=== PATIENT | female | born 1995 | race American Indian/Alaskan Native ===

== ENCOUNTER 2017-02-20 19:22 | Emergency (ER) | payer BC ==
[2017-02-20] MEDS ORDERED: NORCO 10/325 PO ONE (19:51)
[2017-02-20] MEDS ORDERED: MOTRIN PO ONE (19:51)
--- NOTE | 2017-02-20 19:51 | Emergency Department Report ---
ED Lower Extremity HPI - General Chief Complaint: Extremity Injury, Lower Stated Complaint: Injured ANKLE PLAYING BASKETBALL Time Seen by Provider: 02/20/17 19:36 Source: patient, family Mode of arrival: Ambulatory Limitations: No Limitations - History of Present Illness Initial Comments: Seen here report that she was playing basketball yesterday and she jumped and landed on her right ankle and fell and another individual stepped on her ankle. She is reporting swelling and pain pain is not noted 10 and throbbing and hurts to her right outer ankle. Denies any head injury or loss of consciousness. Denies any neck or back pain. Denies any numbness certainly to extremities. Denies any pain in her feet. Patient said she has to limp around. She reports placing ice to site but did not take any medication. MD Complaint: ankle injury -: Last night Injury: Ankle: Right (right ankle pain and swelling) - Related Data Previous Rx's Medication Instructions Recorded Last Taken Type Ibuprofen [Motrin] 600 mg PO Q8H PRN 4 Days #12 tablet 02/20/17 Unknown Rx Allergies Allergy/AdvReac Type Severity Reaction Status Date / Time No Known Allergies Allergy Unverified 02/20/17 19:24 ED Review of Systems ROS: Stated complaint: STARINED ANKLE PLAYING BASKETBALL Other details as noted in HPI Comment: All other systems reviewed and negative Constitutional: no symptoms reported Eyes: denies: eye pain Respiratory: no symptoms reported Cardiovascular: denies: chest pain, palpitations, dyspnea on exertion, edema, syncope, other Gastrointestinal: denies: abdominal pain, nausea, vomiting Musculoskeletal: joint swelling, arthralgia. denies: back pain, myalgia Skin: denies: rash Neurological: abnormal gait (normal gait to lower extremity due to right ankle swelling pain due to injury). denies: headache, weakness, numbness, paresthesias, confusion ED Past Medical Hx - Past Medical History Previous Medical History?: No - Surgical History Past Surgical History?: No - Family History Family history: no significant - Social History Smoking Status: Never Smoker Substance Use Type: None - Medications Home Medications: Home Medications Medication Instructions Recorded Confirmed Last Taken Type Ibuprofen [Motrin] 600 mg PO Q8H PRN 4 Days #12 tablet 02/20/17 Unknown Rx ED Physical Exam - General Limitations: No Limitations General appearance: alert, in no apparent distress - Head Head exam: Present: atraumatic, normocephalic, normal inspection, other (Normal head exam) - Eye Eye exam: Present: normal appearance, PERRL, EOMI. Absent: periorbital swelling , periorbital tenderness Pupils: Present: normal accommodation - ENT ENT exam: Present: normal exam, normal orophraynx, mucous membranes moist - Neck Neck exam: Present: normal inspection, full ROM, other (no C-spine tenderness.) . Absent: tenderness, meningismus, lymphadenopathy - Respiratory Respiratory exam: Present: normal lung sounds bilaterally. Absent: respiratory distress, wheezes, chest wall tenderness, accessory muscle use - Cardiovascular Cardiovascular Exam: Present: regular rate, normal rhythm, normal heart sounds. Absent: systolic murmur, diastolic murmur - GI/Abdominal GI/Abdominal exam: Present: soft, normal bowel sounds. Absent: distended, tenderness, guarding, rebound, rigid - Extremities Exam Extremities exam: Present: full ROM (minute range of motion to right ankle), tenderness (right outer ankle), joint swelling (right outer ankle), other (no neurovascular compromise to extremities. +2 pulses in all extremities. No clubbing or cyanosis to extremities. Patient with swelling to right outer ankle. Decreased strength to right ankle due to pain and swelling from injury) . Absent: normal inspection, pedal edema, calf tenderness - Expanded Lower Extremity Exam Right Hip exam: Present: normal inspection, full ROM, pelvic stability. Absent: tenderness, swelling, abrasion, laceration, ecchymosis, deformity, crepidus, dislocation, erythema, external rotation, internal rotation, shortening Upper Leg exam: Present: normal inspection, full ROM. Absent: tenderness, swelling, abrasion, laceration, ecchymosis, deformity, crepidus, dislocation, erythema Knee exam: Present: normal inspection, full ROM, full knee extension. Absent: tenderness, swelling, abrasion, laceration, ecchymosis, deformity, crepidus, dislocation, erythema, effusion, pain w/ pronation/supination, posterior draw sign, pain/laxity with valgus, pain/laxity with varus Lower Leg exam: Present: normal inspection, full ROM. Absent: tenderness, swelling, abrasion, laceration, ecchymosis, deformity, crepidus, dislocation, erythema, palpable cord Ankle exam: Present: tenderness, swelling (outer ankle). Absent: normal inspection, full ROM ( limited range of motion to the right ankle due to pain and swelling.), abrasion, laceration, ecchymosis, deformity, crepidus, dislocation, erythema Foot/Toe exam: Present: normal inspection, full ROM. Absent: tenderness, swelling, abrasion, laceration, ecchymosis, deformity, crepidus, dislocation, erythema, amputation, puncture wound, foreign body, calcaneal tenderness, tenderness at base of 5th metatarsal, nail avulsion, subungual hematoma Neuro vascular tendon exam: Present: no vascular compromise, motor deficit ( patient with decreased motor movement to right ankle due to injury and pain and swelling to area. 3/5 strength to area), significant pain with passive ROM of distal joint. Absent: pulse deficit, sensory deficit, tendon deficit, extremity cold to touch, pallor, abnormal 2-point discrimination, decreased fine /light touch, foot drop, peroneal nerve deficit Gait: Positive: unable to bear weight - Back Exam Back exam: Present: normal inspection, full ROM, rash noted. Absent: tenderness , CVA tenderness (R), CVA tenderness (L), muscle spasm, paraspinal tenderness, vertebral tenderness - Neurological Exam Neurological exam: Present: alert, oriented X3, abnormal gait (patient with decreased movement to right ankle due to injury and pain and swelling.), motor sensory deficit (3/5 strength to right lower extremity due to ankle injury.), reflexes normal - Psychiatric Psychiatric exam: Present: normal affect, normal mood - Skin Skin exam: Present: warm, dry, intact, normal color. Absent: rash ED Course Vital Signs 02/20/17 02/20/17 19:24 20:22 Temperature 98.7 F Pulse Rate 87 Respiratory 16 18 Rate Blood Pressure 120/84 O2 Sat by Pulse 98 Oximetry - Reevaluation(s) Reevaluation #1: 02/20/17 20:38 She received Percocet 10/325 one tablet by mouth in emergency room for right ankle pain and Motrin 800 mg by mouth. Voice relief of pain. Still awaiting x- rays - Orthopedic Splinting/Casting Injury #1 Side: right Lower Extremity Injury Location: ankle Lower Extremity Immobilizer: stirrup splint Other Orthopedic Equipment: crutches Additional Comments: Patient with good color, sensation, movement and temperature to the toes of right foot. ED Lower Extremity MDM - Radiology Data Radiology results: report reviewed interpreted by me: X-ray of ankle 3 view reveal negative ankle series. No erosive or degenerative changes are identified. No evidence of joint effusion. No mention of soft tissue swelling. - Medical Decision Making ED Course: Patient reports that she fell yesterday and injured her ankle. Physical findings for limited range of motion to right ankle with swelling to right ankle and tenderness to palpate. Patient unable to weight-bear due to pain. X-ray report revealed negative findings for bony abnormalities and did not mention any soft tissue injury. Patient with obvious swelling to the left ankle. She was given Fallon 10/325 mg 1 tablet and Motrin 800 mg one tablet by mouth emergency room. She said that helped her pain. Patient with ankle stirrup and crutches and referred to orthopedic. Rice protocol explained. I explained diagnosis and treatment plan the patient. I told its very important that she follow rice protocol and if she continues to have swelling and with pain to area then she will need to follow up with orthopedic doctor who is Dr. Medina. She given discharge instructions and prescription for Motrin and discharged from emergency room with her friend. Critical care attestation.: If time is entered above; I have spent that time in minutes in the direct care of this critically ill patient, excluding procedure time. ED Disposition Clinical Impression: Arthralgia of right ankle, Fall from ground level Right ankle sprain Qualifiers: Encounter type: initial encounter Involved ligament of ankle: unspecified ligament Qualified Code(s): S93.401A - Sprain of unspecified ligament of right ankle, initial encounter Right ankle injury Qualifiers: Encounter type: initial encounter Qualified Code(s): S99.911A - Unspecified injury of right ankle, initial encounter Disposition: DC- TO HOME OR SELFCARE Is pt being admited?: No Does the pt Need Aspirin: No Condition: Stable Instructions: Arthralgia (ED), Ankle Stirrup Splint (ED), Ankle Exercises (GEN) , Crutch Instructions (ED), RICE Therapy (ED) Additional Instructions: Please do not weight-bear to Rt lower extremity for the next 5 days. Please follow up with orthopedic doctor as instructed in 2-3 days Take Motrin as prescribed. This medication will help to reduce inflammation Follow rice protocol per discharge instruction paperwork No sports until cleared by Orthopedist If he experienced, increased swelling, redness, numbness and tingling , pain radiating up your ankle to legs, fever or chills and inability to move/loss of sensation in left foot please return to the emergency room Prescriptions: Ibuprofen [Motrin] 600 mg PO Q8H PRN 4 Days #12 tablet PRN Reason: Pain Referrals: RICO MEDINA MD [Staff Physician] - 2-3 Days Forms: Work/School Release Form(ED)
--- NOTE | 2017-02-20 21:12 | XRay Report ---
FINAL REPORT EXAM: XR ANKLE 3+V RT HISTORY: pain TECHNIQUE: Three views right ankle PRIORS: None. FINDINGS: No fracture is identified. No dislocation seen. Ankle mortise is intact no evidence of joint space widening. No erosive or degenerative changes are identified. No evidence of joint effusion. IMPRESSION: Negative ankle series
[2017-02-21 02:43] VITALS: BP 116/81
== END 2017-02-20 22:27 | disposition home or self-care (01) ==
LOC: ED 19:22
DX: S93.401A Sprain of unspecified ligament of right ankle, initial encounter (principal); W17.89XA Other fall from one level to another, initial encounter; Y93.67 Activity, basketball; Y92.89 Other specified places as the place of occurrence of the external cause; Y99.8 Other external cause status

== ENCOUNTER 2020-03-02 19:10 | Emergency (ER) | payer BC ==
[2020-03-02 19:37] VITALS: BP 150/77
[2020-03-02 19:46] LABS: Basophils % (Auto) 0.5 % (0.0-1.8); Eosinophils # (Auto) 0.1 K/mm3 (0.0-0.4); Eosinophils % (Auto) 1.9 % (0.0-4.3); Hematocrit 39.8 % (30.3-42.9); Hemoglobin 13.4 gm/dl (10.1-14.3); Lymphocytes # (Auto) 2.4 K/mm3 (1.2-5.4); Lymphocytes % (Auto) 32.3 % (13.4-35.0); Mean Corpuscular HGB Conc 34 % (30-34); Mean Corpuscular Volume 90 fl (79-97); Monocytes # (Auto) 0.4 K/mm3 (0.0-0.8); Monocytes % (Auto) 5.2 % (0.0-7.3); Platelet Count 239 K/mm3 (140-440); Red Blood Count 4.45 M/mm3 (3.65-5.03); Red Cell Distribution Width 13.3 % (13.2-15.2)
[2020-03-02 20:37] LABS: Alanine Aminotransferase 19 units/L (7-56); Albumin 4.4 g/dL (3.9-5); BUN/Creatinine Ratio 13; Blood Urea Nitrogen 12 mg/dL (7-17); Calcium 10.3 mg/dL (8.4-10.2); Hemolysis Index 12
[2020-03-02 20:58] LABS: Bilirubin,Urine NEG (Negative); Blood,Urine LG (Negative); Color,Urine Yellow (Yellow); Mucus,Urine 1+ /HPF; RBC,Urine > 182.0 /HPF (0.0-6.0); Urobilinogen,Urine < 2.0 mg/dL (<2.0)
--- NOTE | 2020-03-02 21:56 | Ultrasound Report ---
ULTRASOUND OBSTETRIC REASON FOR EXAM: vaginal bleeding TECHNIQUE: Transabdominal and transvaginal ultrasound was performed to evaluate a first trimester pre gnancy. COMPARISON: None available. FINDINGS: FINDINGS: No IUP is visualized. MATERNAL FINDINGS: The uterus measures 7.2 x 3.3 x 3.4 cm. Endometrial thickness measures 1.2 cm. . The right ovary measures 4.4 x 2.1 x 1.8 cm and demonstrates a normal sonographic appearance. Multipl e ovarian follicles. The left ovary measures 4.3 x 2.5 x 2.9 cm and demonstrates a normal sonographic appearance. Multiple ovarian follicles. Cul-de-sac: There is no significant free fluid. IMPRESSION: of unknown location. Findings could reflect an early intrauterine , occult ectopic , or recent spontaneous . In a hemodynamically stable patient, recommend follow-up with pelvic ultrasound in 7-10 days. Signer Name: Johan Penaloza MD Signed: 03/02/2020 9:52 PM Workstation Name: [id number]
--- NOTE | 2020-03-02 22:41 | Emergency Department Report ---
ED General Adult HPI - General Chief complaint: Vaginal Bleeding Stated complaint: VAGINAL BLEEDING Time Seen by Provider: 03/02/20 21:07 Source: patient Mode of arrival: Ambulatory Limitations: No Limitations - History of Present Illness Initial comments: 25-year-old -[place] female patient presents with complaints of heavy vaginal bleeding x1 month. She states she is unsure if she is . She denies history of irregular cycles, fatigue, shortness of breath, chest pain, vaginal discharge/dyspareunia, dysuria/hematuria/urinary frequency, or abdominal pain. She states she became concerned today when the blood began to soak through her clothes while at work. No prior history of uterine fibroids per patient. She states that she has used 3 pads today. - Related Data Previous Rx's Medication Instructions Recorded Last Taken Type Ibuprofen [Motrin] 600 mg PO Q8H PRN 4 Days #12 tablet 02/20/17 Unknown Rx Sulfamethoxazole/Trimethoprim 1 each PO BID 3 Days #6 tablet 03/02/20 Unknown Rx [Bactrim DS TAB] medroxyPROGESTERone ACETATE 10 mg PO QDAY 7 Days #7 tablet 03/02/20 Unknown Rx [Provera] Allergies Allergy/AdvReac Type Severity Reaction Status Date / Time No Known Allergies Allergy Unverified 02/20/17 19:24 ED Review of Systems ROS: Stated complaint: VAGINAL BLEEDING Other details as noted in HPI Constitutional: denies: chills, diaphoresis, fever, malaise, weakness ENT: denies: throat pain, epistaxis Respiratory: denies: cough, shortness of breath Cardiovascular: denies: chest pain Endocrine: denies: excessive sweating Gastrointestinal: denies: abdominal pain, nausea, vomiting Genitourinary: abnormal menses. denies: urgency, dysuria, frequency, hematuria, discharge, dyspareunia Skin: denies: change in color Neurological: denies: headache, numbness Hematological/Lymphatic: denies: easy bleeding, easy bruising ED Past Medical Hx - Past Medical History Previous Medical History?: No - Surgical History Past Surgical History?: No - Social History Smoking Status: Never Smoker - Medications Home Medications: Home Medications Medication Instructions Recorded Confirmed Last Taken Type Ibuprofen [Motrin] 600 mg PO Q8H PRN 4 Days #12 tablet 02/20/17 Unknown Rx Sulfamethoxazole/Trimethoprim 1 each PO BID 3 Days #6 tablet 03/02/20 Unknown Rx [Bactrim DS TAB] medroxyPROGESTERone ACETATE 10 mg PO QDAY 7 Days #7 tablet 03/02/20 Unknown Rx [Provera] ED Physical Exam - General Limitations: No Limitations General appearance: alert, in no apparent distress - Head Head exam: Present: atraumatic, normocephalic - Eye Eye exam: Present: normal appearance. Absent: scleral icterus - Neck Neck exam: Present: normal inspection - Respiratory Respiratory exam: Present: normal lung sounds bilaterally. Absent: respiratory distress - Cardiovascular Cardiovascular Exam: Present: regular rate, normal rhythm. Absent: systolic mur mur, diastolic murmur, rubs, gallop - GI/Abdominal GI/Abdominal exam: Present: soft, normal bowel sounds. Absent: distended, tenderness, guarding, rebound, rigid - Extremities Exam Extremities exam: Present: full ROM - Neurological Exam Neurological exam: Present: alert, oriented X3 - Psychiatric Psychiatric exam: Present: normal affect, normal mood - Skin Skin exam: Present: warm, dry, intact, normal color. Absent: rash, cyanosis, diaphoretic, pallor, ecchymosis ED Course Vital Signs 03/02/20 19:21 Temperature 99.2 F Pulse Rate 85 Respiratory 18 Rate Blood Pressure 150/77 O2 Sat by Pulse 96 Oximetry ED Medical Decision Making - Lab Data Result diagrams: 03/02/20 19:32 03/02/20 19:32 Lab Results 03/02/20 03/02/20 03/02/20 Range/Units 19:32 19:32 19:32 WBC 7.5 (4.5-11.0) K/mm3 RBC 4.45 (3.65-5.03) M/mm3 Hgb 13.4 (10.1-14.3) gm/dl Hct 39.8 (30.3-42.9) % MCV 90 (79-97) fl MCH 30 (28-32) pg MCHC 34 (30-34) % RDW 13.3 (13.2-15.2) % Plt Count 239 (140-440) K/mm3 Lymph % (Auto) 32.3 (13.4-35.0) % [place] % (Auto) 5.2 (0.0-7.3) % Eos % (Auto) 1.9 (0.0-4.3) % Baso % (Auto) 0.5 (0.0-1.8) % Lymph # (Auto) 2.4 (1.2-5.4) K/mm3 [place] # (Auto) 0.4 (0.0-0.8) K/mm3 Eos # (Auto) 0.1 (0.0-0.4) K/mm3 Baso # (Auto) 0.0 (0.0-0.1) K/mm3 Seg Neutrophils % 60.1 (40.0-70.0) % Seg Neutrophils # 4.5 (1.8-7.7) K/mm3 Sodium (137-145) mmol/L Potassium (3.6-5.0) mmol/L Chloride (98-107) mmol/L Carbon Dioxide (22-30) mmol/L Anion Gap mmol/L BUN (7-17) mg/dL Creatinine (0.6-1.2) mg/dL Estimated GFR ml/min BUN/Creatinine Ratio % Glucose (65-100) mg/dL Calcium (8.4-10.2) mg/dL Total Bilirubin (0.1-1.2) mg/dL AST (5-40) units/L ALT (7-56) units/L Alkaline Phosphatase (35-129) units/L Total Protein (6.3-8.2) g/dL Albumin (3.9-5) g/dL Albumin/Globulin Ratio % HCG, Quant < 2 (0-4) mIU/mL Urine Color (Yellow) Urine Turbidity (Clear) Urine pH (5.0-7.0) Ur Specific [place] (1.003-1.030) Urine Protein (Negative) mg/dL Urine Glucose (UA) (Negative) mg/dL Urine Ketones (Negative) mg/dL Urine Blood (Negative) Urine Nitrite (Negative) Urine Bilirubin (Negative) Urine Urobilinogen (<2.0) mg/dL Ur Leukocyte Esterase (Negative) Urine WBC (Auto) (0.0-6.0) /HPF Urine RBC (Auto) (0.0-6.0) /HPF U Epithel Cells (Auto) (0-13.0) /HPF Urine Mucus /HPF Blood Type O POSITIVE 03/02/20 03/02/20 Range/Units 19:32 20:30 WBC (4.5-11.0) K/mm3 RBC (3.65-5.03) M/mm3 Hgb (10.1-14.3) gm/dl Hct (30.3-42.9) % MCV (79-97) fl MCH (28-32) pg MCHC (30-34) % RDW (13.2-15.2) % Plt Count (140-440) K/mm3 Lymph % (Auto) (13.4-35.0) % [place] % (Auto) (0.0-7.3) % Eos % (Auto) (0.0-4.3) % Baso % (Auto) (0.0-1.8) % Lymph # (Auto) (1.2-5.4) K/mm3 [place] # (Auto) (0.0-0.8) K/mm3 Eos # (Auto) (0.0-0.4) K/mm3 Baso # (Auto) (0.0-0.1) K/mm3 Seg Neutrophils % (40.0-70.0) % Seg Neutrophils # (1.8-7.7) K/mm3 Sodium 141 (137-145) mmol/L Potassium 4.3 (3.6-5.0) mmol/L Chloride 103.4 (98-107) mmol/L Carbon Dioxide 28 (22-30) mmol/L Anion Gap 14 mmol/L BUN 12 (7-17) mg/dL Creatinine 0.9 (0.6-1.2) mg/dL Estimated GFR > 60 ml/min BUN/Creatinine Ratio 13 % Glucose 86 (65-100) mg/dL Calcium 10.3 H (8.4-10.2) mg/dL Total Bilirubin 0.20 (0.1-1.2) mg/dL AST 18 (5-40) units/L ALT 19 (7-56) units/L Alkaline Phosphatase 70 (35-129) units/L Total Protein 7.5 (6.3-8.2) g/dL Albumin 4.4 (3.9-5) g/dL Albumin/Globulin Ratio 1.4 % HCG, Quant (0-4) mIU/mL Urine Color Yellow (Yellow) Urine Turbidity Slightly-cloudy (Clear) Urine pH 6.0 (5.0-7.0) Ur Specific [place] 1.024 (1.003-1.030) Urine Protein 100 mg/dl (Negative) mg/dL Urine Glucose (UA) Neg (Negative) mg/dL Urine Ketones Neg (Negative) mg/dL Urine Blood Lg (Negative) Urine Nitrite Neg (Negative) Urine Bilirubin Neg (Negative) Urine Urobilinogen < 2.0 (<2.0) mg/dL Ur Leukocyte Esterase Neg (Negative) Urine WBC (Auto) 7.0 H (0.0-6.0) /HPF Urine RBC (Auto) > 182.0 (0.0-6.0) /HPF U Epithel Cells (Auto) 14.0 H (0-13.0) /HPF Urine Mucus 1+ /HPF Blood Type - Radiology Data Radiology results: report reviewed FINDINGS: No IUP is visualized. MATERNAL FINDINGS: The uterus measures 7.2 x 3.3 x 3.4 cm. Endometrial thickness measures 1.2 cm. . The right ovary measures 4.4 x 2.1 x 1.8 cm and demonstrates a normal sonographic appearance. Multiple ovarian follicles. The left ovary measures 4.3 x 2.5 x 2.9 cm and demonstrates a normal sonographic appearance. Multiple ovarian follicles. Cul-de-sac: There is no significant free fluid. IMPRESSION: of unknown location. Findings could reflect an early intrauterine , occult ectopic , or recent spontaneous . In a hemodynamically stable patient, recommend follow-up with pelvic ultrasound in 7-10 days. - Medical Decision Making 25-year-old -[place] female patient presents with complaints of heavy vaginal bleeding x1 month. She states she is unsure if she is . She denies history of irregular cycles, fatigue, shortness of breath, chest pain, vaginal discharge/dyspareunia, dysuria/hematuria/urinary frequency, or abdominal pain. She states she became concerned today when the blood began to soak through her clothes while at work. No prior history of uterine fibroids per patient. She states that she has used 3 pads today. No abdominal pain on exam. Hemoglobin is normal CBC. UA shows 7 WBCs. Transvaginal ultrasound is normal. Will treat dysfunctional bleeding with Provera and UTI with Bactrim. Recommend follow-up with [facility] within 2 to 3 days, referral provided. Her vitals are normal, she is well-appearing, she is stable for discharge home. Strict return precautions were discussed in great detail with patient who verbalizes understanding Critical care attestation.: If time is entered above; I have spent that time in minutes in the direct care of this critically ill patient, excluding procedure time. ED Disposition Clinical Impression: Menstrual cycle problem UTI (urinary tract infection) Qualifiers: Urinary tract infection type: acute cystitis Hematuria presence: without hematuria Qualified Code(s): N30.00 - Acute cystitis without hematuria Disposition: TO HOME OR SELFCARE Is pt being admited?: No Condition: Stable Instructions: Dysfunctional Uterine Bleeding, Urinary Tract Infection, Adult, [id number] Prescriptions: Sulfamethoxazole/Trimethoprim [Bactrim DS TAB] 1 each PO BID 3 Days #6 tablet medroxyPROGESTERone ACETATE [Provera] 10 mg PO QDAY 7 Days #7 tablet Referrals: [facility] [Provider Group] - 3-5 Days
== END 2020-03-02 22:48 | disposition home or self-care (01) ==
LOC: ED 19:10
DX: N39.0 Urinary tract infection, site not specified (principal); N92.6 Irregular menstruation, unspecified; Z79.1 Long term (current) use of non-steroidal anti-inflammatories (NSAID); Z79.899 Other long term (current) drug therapy
CPT/HCPCS: 36415; 76801; 76817; 80053; 81001; 84702; 85025; 86900; 86901; 87086

== ENCOUNTER 2020-03-16 18:14 | Emergency (ER) | payer BC ==
--- NOTE | 2020-03-16 18:36 | Event Note ---
ED Screening Note Date of service: 03/16/20 Time: 18:35 ED Screening Note: 25-year-old -[place] female presents to the emergency room for heavy vaginal bleeding. Patient was seen here 2 weeks ago and was placed on Provera and treated for urinary tract infection with Bactrim. Patient did not follow-up with the INFORMATION [facility] REFERRAL DIRECTOR as she was instructed and returns back here. She reports now she has abdominal pain with the bleeding. This initial assessment/diagnostic orders/clinical plan/treatment(s) is/are subject to change based on patients health status, clinical progression and re- assessment by fellow clinical providers in the ED. Further treatment and workup at subsequent clinical providers discretion. Patient/guardian urged not to elope from the ED as their condition may be serious if not clinically assessed and managed. Initial orders include:
--- NOTE | 2020-03-16 18:42 | Event Note ---
ED Screening Note Date of service: 03/16/20 Time: 18:39 ED Screening Note: This initial assessment/diagnostic orders/clinical plan/treatment(s) is/are subject to change based on patients health status, clinical progression and re- assessment by fellow clinical providers in the ED. Further treatment and workup at subsequent clinical providers discretion. Patient/guardian urged not to elope from the ED as their condition may be serious if not clinically assessed and managed. Initial orders include:
[2020-03-16 19:35] LABS: Basophils % (Auto) 0.3 % (0.0-1.8); Eosinophils % (Auto) 0.6 % (0.0-4.3); Hematocrit 36.5 % (30.3-42.9); Hemoglobin 12.5 gm/dl (10.1-14.3); Lymphocytes # (Auto) 2.8 K/mm3 (1.2-5.4); Lymphocytes % (Auto) 40.3 % (13.4-35.0); Mean Corpuscular HGB Conc 34 % (30-34); Mean Corpuscular Volume 89 fl (79-97); Monocytes # (Auto) 0.4 K/mm3 (0.0-0.8); Monocytes % (Auto) 5.5 % (0.0-7.3); Platelet Count 248 K/mm3 (140-440); Red Blood Count 4.11 M/mm3 (3.65-5.03); Red Cell Distribution Width 13.3 % (13.2-15.2)
[2020-03-16 19:44] LABS: INR 0.86 (0.87-1.13)
[2020-03-16 19:45] LABS: Partial Thromboplastin Time 27.5 Sec. (24.2-36.6)
[2020-03-16] MEDS ORDERED: ACETAMINOPHEN 500 MG TAB PO ONE (21:42)
[2020-03-16] MEDS ORDERED: medroxyPROGESTERone ACETATE 5 MG TAB PO SCH (21:42)
--- NOTE | 2020-03-16 21:45 | Ultrasound Report ---
ULTRASOUND PELVIS INDICATION / CLINICAL INFORMATION: vaginal bleeding. TECHNIQUE: Transabdominal. Duplex Color Doppler used: Yes. COMPARISON: Ultrasound dated 03/02/20 FINDINGS: UTERUS: - Appearance: No significant abnormality. - Size (cm): 5.5 x 4.4 x 6.3 - Endometrial Complex (if present): No significant abnormality.. Thickness in cm (if measured) = 0.9 - Mass or cyst: None. - Additional findings: None. RIGHT ADNEXA: No significant ovarian cyst or mass. Normal color Doppler blood flow. LEFT ADNEXA: No significant ovarian cyst or mass. Normal color Doppler blood flow. URINARY BLADDER: Contracted. FREE FLUID: None. ADDITIONAL FINDINGS: None. IMPRESSION: 1. No acute abnormality. Signer Name: Donald Goodwin MD Signed: 03/16/2020 9:41 PM Workstation Name: [id number]
[2020-03-16 21:46] LABS: Bilirubin,Urine NEG (Negative); Blood,Urine NEG (Negative); Color,Urine Yellow (Yellow); HCG Qualitative,Urine Negative (Negative); Mucus,Urine FEW /HPF; Protein,Urine <15 mg/dL mg/dL (Negative)
[2020-03-16] MEDS ORDERED: cephALEXin 500 MG CAP PO ONE (22:04)
[2020-03-16] MEDS ORDERED: FLUCONAZOLE 200 MG TAB PO ONE (22:34)
--- NOTE | 2020-03-16 23:56 | Emergency Department Report ---
ED Female HPI - General Chief complaint: Vaginal Bleeding Stated complaint: ABD PAIN/ VAGINAL BLEEDING Source: patient Mode of arrival: Ambulatory Limitations: No Limitations - History of Present Illness Initial comments: Patient is a nulliparous 25-year-old -Tajik female with no past medical history presents to the ED with complaint of acute onset persistent heavy vaginal bleeding for the last 2 months. Patient also complains of pelvic pain intermittently for the last 2 weeks, worse in the last 2 days. Patient states that she was initially evaluated in this ED about 2 months ago for the same and was discharged home on a 7-day course of medroxyprogesterone 10 mg tablet which she duly finished. Patient states that the bleeding never stopped and that in the last 1 week or so it has become worse. Patient however states that she has not followed up with any [employer]CH[employer]ICIAN physician. Patient denies dizziness, syncope, headache, nausea, lightheadedness, dyspareunia, vaginal discharge, diarrhea, sore throat, vomiting, chest pain, shortness of breath, dysuria, urinary frequency and urgency or change in vision. MD Complaint: vaginal bleeding, pelvic pain -: Gradual, month(s) (2) Location: suprapubic, other (vaginal) Radiation: non-radiating Severity: moderate Severity scale (0 -10): 4 Quality: cramping, aching Consistency: constant Improves with: none Worsens with: none Are you Now?: No Associated Symptoms: denies other symptoms, vaginal bleeding, abdominal pain (suprapubic pressure and cramps). denies: vaginal discharge, nausea/vomiting, fever/chills, headaches, loss of appetite, dysuria, hematuria, rash, seizure, shortness of breath, syncope, weakness - Related Data Sexually active: Yes : 0 Para: 0 A: 0 Previous Rx's Medication Instructions Recorded Last Taken Type Ibuprofen [Motrin] 600 mg PO Q8H PRN 4 Days #12 tablet 02/20/17 Unknown Rx Sulfamethoxazole/Trimethoprim 1 each PO BID 3 Days #6 tablet 03/02/20 Unknown Rx [Bactrim DS TAB] Fluconazole (Nf) [Diflucan TAB] 150 mg PO ONCE #2 tablet 03/16/20 Unknown Rx Ibuprofen [Motrin] 800 mg PO Q8HR PRN #30 tablet 03/16/20 Unknown Rx Ondansetron [Zofran Odt] 4 mg PO Q6HR PRN #15 tab.rapdis 03/16/20 Unknown Rx cephALEXin [Keflex] 500 mg PO Q8HR #30 cap 03/16/20 Unknown Rx medroxyPROGESTERone ACETATE 10 mg PO QDAY 14 Days #14 tablet 03/16/20 Unknown Rx [Provera] Allergies Allergy/AdvReac Type Severity Reaction Status Date / Time No Known Allergies Allergy Unverified 02/20/17 19:24 ED Review of Systems ROS: Stated complaint: ABD PAIN/ VAGINAL BLEEDING Other details as noted in HPI Constitutional: denies: chills, fever Eyes: denies: eye pain, eye discharge, vision change ENT: denies: ear pain, throat pain Respiratory: denies: cough, shortness of breath, wheezing Cardiovascular: denies: chest pain, palpitations Endocrine: no symptoms reported Gastrointestinal: abdominal pain (suprapubic). denies: nausea, vomiting, diarrhea Genitourinary: hematuria, abnormal menses (vaginal bleeding). denies: urgency, dysuria, frequency, discharge Musculoskeletal: denies: back pain, joint swelling, arthralgia Skin: denies: rash, lesions Neurological: denies: headache, weakness, paresthesias Psychiatric: denies: anxiety, depression Hematological/Lymphatic: denies: easy bleeding, easy bruising ED Past Medical Hx - Past Medical History Previous Medical History?: Yes Additional medical history: Heavy vaginal bleeding - Surgical History Past Surgical History?: No - Social History Smoking Status: Current Every Day Smoker Substance Use Type: Alcohol - Medications Home Medications: Home Medications Medication Instructions Recorded Confirmed Last Taken Type Ibuprofen [Motrin] 600 mg PO Q8H PRN 4 Days #12 tablet 02/20/17 Unknown Rx Sulfamethoxazole/Trimethoprim 1 each PO BID 3 Days #6 tablet 03/02/20 Unknown Rx [Bactrim DS TAB] Fluconazole (Nf) [Diflucan TAB] 150 mg PO ONCE #2 tablet 03/16/20 Unknown Rx Ibuprofen [Motrin] 800 mg PO Q8HR PRN #30 tablet 03/16/20 Unknown Rx Ondansetron [Zofran Odt] 4 mg PO Q6HR PRN #15 tab.rapdis 03/16/20 Unknown Rx cephALEXin [Keflex] 500 mg PO Q8HR #30 cap 03/16/20 Unknown Rx medroxyPROGESTERone ACETATE 10 mg PO QDAY 14 Days #14 tablet 03/16/20 Unknown Rx [Provera] ED Physical Exam - General Limitations: No Limitations General appearance: alert, in no apparent distress - Head Head exam: Present: atraumatic, normocephalic, normal inspection - Eye Eye exam: Present: normal appearance, PERRL, EOMI Pupils: Present: normal accommodation - ENT ENT exam: Present: normal exam, normal orophraynx, mucous membranes moist, TM's normal bilaterally, normal external ear exam - Neck Neck exam: Present: normal inspection, full ROM - Respiratory Respiratory exam: Present: normal lung sounds bilaterally. Absent: respiratory distress, wheezes, rales, stridor, chest wall tenderness, accessory muscle use, decreased breath sounds, prolonged expiratory - Cardiovascular Cardiovascular Exam: Present: regular rate, normal rhythm, normal heart sounds. Absent: systolic murmur, diastolic murmur, rubs, gallop - GI/Abdominal GI/Abdominal exam: Present: soft, tenderness (Mild suprapubic tenderness), norm al bowel sounds. Absent: guarding, rebound, hyperactive bowel sounds, hypoactive bowel sounds, mass, bruit - Bi-manual exam: Present: other (Pelvic exam deferred, patient preferred [employer]IAN) - Extremities Exam Extremities exam: Present: normal inspection, full ROM, normal capillary refill - Back Exam Back exam: Present: normal inspection, full ROM. Absent: tenderness, CVA tende rness (R), muscle spasm, paraspinal tenderness, vertebral tenderness - Neurological Exam Neurological exam: Present: alert, oriented X3, CN II-XII intact, normal gait, reflexes normal - Psychiatric Psychiatric exam: Present: normal affect, normal mood - Skin Skin exam: Present: warm, dry, intact, normal color. Absent: rash ED Course Vital Signs 03/16/20 18:25 Temperature 98.4 F Pulse Rate 96 H Respiratory 20 Rate Blood Pressure 139/87 [Right] O2 Sat by Pulse 97 Oximetry ED Medical Decision Making - Lab Data Result diagrams: 03/16/20 19:08 - Radiology Data Radiology results: report reviewed, image reviewed Findings [facility] [address] [place] [address] Ultrasound Report Signed Patient: MANUEL MART MR#: [id number] : 1995 Acct:[id number] Age/Sex: 25 / F ADM Date: 03/16/20 Loc: ED Attending Dr: Ordering Physician: TING ARRINGTON Date of Service: 03/16/20 Procedure(s): US pelvic complete Accession Number(s): [id number] cc: TING ARRINGTON ULTRASOUND PELVIS INDICATION / CLINICAL INFORMATION: vaginal bleeding. TECHNIQUE: Transabdominal. Duplex Color Doppler used: Yes. COMPARISON: Ultrasound dated 03/02/20 FINDINGS: UTERUS: - Appearance: No significant abnormality. - Size (cm): 5.5 x 4.4 x 6.3 - Endometrial Complex (if present): No significant abnormality.. Thickness in cm (if measured) = 0.9 - Mass or cyst: None. - Additional findings: None. RIGHT ADNEXA: No significant ovarian cyst or mass. Normal color Doppler blood flow. LEFT ADNEXA: No significant ovarian cyst or mass. Normal color Doppler blood flow. URINARY BLADDER: Contracted. FREE FLUID: None. ADDITIONAL FINDINGS: None. IMPRESSION: 1. No acute abnormality. Signer Name: Donald Goodwin MD Signed: 03/16/2020 9:41 PM Workstation Name: [id number] Transcribed By: DT Dictated By: Efraín Goodwin MD Electronically Authenticated By: Efraín Goodwin MD Signed Date/Time: 03/16/202140 DD/ 38 TD/TT: - Medical Decision Making This is a nulliparous 25-year-old -[place]aj[place] female with no past medical history presents to the ED with complaint of acute onset persistent heavy vaginal bleeding for the last 2 months. Patient also complains of pelvic pain intermittently for the last 2 weeks, worse in the last 2 days. Patient states that she was initially evaluated in this ED about 2 months ago for the same and was discharged home on a 7-day course of medroxyprogesterone 10 mg tablet which she duly finished. Patient states that the bleeding never stopped and that in the last 1 week or so it has become worse. Patient however states that she has not followed up with any [employer]IAN physician. In the ED, patient is alert and oriented x3 and is not in distress with normal vital signs. Patient was treated initially in the ED with pain medications, also received medroxyprogesterone 10 mg p.o. x1. Lab test results were reviewed and are all nonactionable except urinalysis that showed significant urinary tract infection and a negative hCG urine test. Pelvic ultrasound showed no acute abnormalities. Patient was also treated in the ED with oral antibiotics for UTI. On reevaluation, patient felt better and was discharged home on medications, and was advised to follow-up with her [employer]CH[employer]ICIAN physician in 7 to 10 days for reevaluation. Patient was advised to return to the ED immediately if symptoms get worse. - Differential Diagnosis ; subchorionic bleed; UTI; Fibroids; ovarian cyst Critical care attestation.: If time is entered above; I have spent that time in minutes in the direct care of this critically ill patient, excluding procedure time. ED Disposition Clinical Impression: Dysfunctional uterine hemorrhage, Acute urinary tract infection, Candidal vaginitis Disposition: TO HOME OR SELFCARE Is pt being admited?: No Does the pt Need Aspirin: No Condition: Stable Instructions: Vaginitis, Kctn-[id number], Metrorrhagia, [id number], Urinary Tract Infection, Adult, Gelp-[id number], Menorrhagia, [id number], Abnormal Uterine Bleeding, [id number] Additional Instructions: All lab test results were reviewed and are all nonactionable. Pelvic ultrasound is unremarkable with no acute abnormalities. Urinalysis however showed si gnificant urinary tract infection and vaginal yeast infection. Therefore take medications with food, drink plenty of fluids and follow-up with your [employer] TECHNICIAN physician in 3 to 5 days for reevaluation. Return to the ED immediately if symptoms get worse. Prescriptions: Fluconazole (Nf) [Diflucan TAB] 150 mg PO ONCE #2 tablet cephALEXin [Keflex] 500 mg PO Q8HR #30 cap Ibuprofen [Motrin] 800 mg PO Q8HR PRN #30 tablet PRN Reason: Pain , Severe (7-10) medroxyPROGESTERone ACETATE [Provera] 10 mg PO QDAY 14 Days #14 tablet Ondansetron [Zofran Odt] 4 mg PO Q6HR PRN #15 tab.rapdis PRN Reason: Nausea Referrals: MIGUEL HOYT MD [Staff Physician] - 3-5 Days Time of Disposition: 23:57 Print Language: KOREAN
[2020-03-17 02:03] VITALS: BP 122/72
== END 2020-03-17 01:00 | disposition home or self-care (01) ==
LOC: ED 18:14
DX: N39.0 Urinary tract infection, site not specified (principal); B37.3 Candidiasis of vulva and vagina; N93.8 Other specified abnormal uterine and vaginal bleeding; F17.200 Nicotine dependence, unspecified, uncomplicated; Z79.1 Long term (current) use of non-steroidal anti-inflammatories (NSAID); Z79.899 Other long term (current) drug therapy
CPT/HCPCS: 36415; 76856; 81001; 81025; 84702; 85025; 85610; 85730; 87086

== ENCOUNTER 2021-11-07 12:30 | Emergency (ER) | payer SELFPAY ==
[2021-11-07] MEDS ORDERED: IBUPROFEN 600 MG TAB PO ONE (20:59)
[2021-11-07] MEDS ORDERED: HYDROcodone/ACETAMINOPHEN 5-325 MG TAB PO ONE (20:59)
[2021-11-07] MEDS ORDERED: ONDANSETRON 4 MG ODT TAB PO ONE (20:59)
[2021-11-07] MEDS ORDERED: SULFAMETHOXAZOLE/TRIMETHOPRIM 800/160MG DS TAB PO ONE (20:59)
[2021-11-07] MEDS ORDERED: LIDOCAINE (1%) 10 MG/1 ML VIAL 20 ML MDV INFILTRATI ONE (20:59)
--- NOTE | 2021-11-07 23:42 | Emergency Department Report ---
ED Extremity Problem HPI - General Chief complaint: Extremity Injury, Upper Stated complaint: SWOLLEN FINGER Source: patient Mode of arrival: Ambulatory Limitations: No Limitations - History of Present Illness Initial comments: Patient is a nulliparous 26-year-old -K[place] female with no past medical history who presents to the ED with complaint of acute onset persistent nontraumatic painful swollen mild erythematous rash on distal left index finger for the last 3 days. Patient admits to biting her nails habitually. Patient states that in the last 2 days she has not been able to perform any active range of motion of the left hand because of worsening distal left index finger pain and swelling. Patient denies dizziness, syncope, fever, chills, nausea and vomiting, traumatic injury, numbness and tingling or weakness of left hand. MD Complaint: extremity pain (LEFT INDEX FINGER PAIN, SWELLING), extremity swelling (distal left index finger pain with swelling) -: days(s) (3) Location: left, upper extremity (left index finger pain and swelling) -: No myalgia, No arthralgia, No fever, No associated dyspnea, No associated chest pain Radiation: distal Severity scale (0 -10): 8 Quality: aching, sharp Consistency: constant Improves with: nothing Worsens with: weight bearing, palpation Associated Symptoms: rash (Swollen, painful distal left index finger mild erythematous rash). denies: chest pain, shortness of breath, fever, myalgias, arthralgias - Related Data Previous Rx's Medication Instructions Recorded Last Taken Type Ibuprofen [Motrin] 600 mg PO Q8H PRN 4 Days #12 tablet 02/20/17 Unknown Rx Fluconazole (Nf) [Diflucan TAB] 150 mg PO ONCE #2 tablet 03/16/20 Unknown Rx Ondansetron [Zofran Odt] 4 mg PO Q6HR PRN #15 tab.rapdis 03/16/20 Unknown Rx cephALEXin [Keflex] 500 mg PO Q8HR #30 cap 03/16/20 Unknown Rx medroxyPROGESTERone ACETATE 10 mg PO QDAY 14 Days #14 tablet 03/16/20 Unknown Rx [Provera] Ibuprofen [Motrin 800 MG tab] 800 mg PO Q8HR PRN #30 tablet 11/07/21 Unknown Rx Sulfamethoxazole/Trimethoprim 1 each PO Q12H 3 Days #20 tablet 11/07/21 Unknown Rx [Bactrim DS TAB] Allergies Allergy/AdvReac Type Severity Reaction Status Date / Time No Known Allergies Allergy Unverified 11/07/21 13:57 ED Review of Systems ROS: Stated complaint: SWOLLEN FINGER Other details as noted in HPI Constitutional: denies: chills, fever Eyes: denies: eye pain, eye discharge, vision change ENT: denies: ear pain, throat pain Respiratory: denies: cough, shortness of breath, wheezing Cardiovascular: denies: chest pain, palpitations Endocrine: no symptoms reported Gastrointestinal: denies: abdominal pain, nausea, vomiting, diarrhea Genitourinary: denies: urgency, dysuria, discharge Musculoskeletal: joint swelling (distal left index finger swollen painful rash), arthralgia. denies: back pain, myalgia Skin: rash (swollen painful mildly erythematous rash on distal left index finger ). denies: lesions Neurological: denies: headache, weakness, paresthesias Psychiatric: denies: anxiety, depression Hematological/Lymphatic: denies: easy bleeding, easy bruising ED Past Medical Hx - Past Medical History Previous Medical History?: No Additional medical history: Heavy vaginal bleeding - Surgical History Past Surgical History?: No - Social History Smoking Status: Current Every Day Smoker Substance Use Type: Alcohol - Medications Home Medications: Home Medications Medication Instructions Recorded Confirmed Last Taken Type Ibuprofen [Motrin] 600 mg PO Q8H PRN 4 Days #12 tablet 02/20/17 Unknown Rx Fluconazole (Nf) [Diflucan TAB] 150 mg PO ONCE #2 tablet 03/16/20 Unknown Rx Ondansetron [Zofran Odt] 4 mg PO Q6HR PRN #15 tab.rapdis 03/16/20 Unknown Rx cephALEXin [Keflex] 500 mg PO Q8HR #30 cap 03/16/20 Unknown Rx medroxyPROGESTERone ACETATE 10 mg PO QDAY 14 Days #14 tablet 03/16/20 Unknown Rx [Provera] Ibuprofen [Motrin 800 MG tab] 800 mg PO Q8HR PRN #30 tablet 11/07/21 Unknown Rx Sulfamethoxazole/Trimethoprim 1 each PO Q12H 3 Days #20 tablet 11/07/21 Unknown Rx [Bactrim DS TAB] ED Physical Exam - General Limitations: No Limitations General appearance: alert, in no apparent distress - Head Head exam: Present: atraumatic, normocephalic, normal inspection - Eye Eye exam: Present: normal appearance, PERRL, EOMI Pupils: Present: normal accommodation - ENT ENT exam: Present: normal exam, normal orophraynx, mucous membranes moist, TM's normal bilaterally, normal external ear exam - Neck Neck exam: Present: normal inspection, full ROM. Absent: tenderness - Respiratory Respiratory exam: Present: normal lung sounds bilaterally. Absent: respiratory distress, wheezes, rales, rhonchi, stridor, chest wall tenderness, accessory muscle use, decreased breath sounds, prolonged expiratory - Cardiovascular Cardiovascular Exam: Present: regular rate, normal rhythm, normal heart sounds. Absent: systolic murmur, diastolic murmur, rubs, gallop - GI/Abdominal GI/Abdominal exam: Present: soft, normal bowel sounds. Absent: tenderness, guarding, hyperactive bowel sounds, hypoactive bowel sounds, organomegaly, mass - Extremities Exam Extremities exam: Present: normal inspection, full ROM, tenderness (Palpable distal left index finger tenderness due to mild erythematous maculopapular rash with swelling), normal capillary refill. Absent: pedal edema, joint swelling, calf tenderness - Back Exam Back exam: Present: normal inspection, full ROM. Absent: tenderness, CVA tenderness (R), CVA tenderness (L), muscle spasm, paraspinal tenderness, verteb ral tenderness - Neurological Exam Neurological exam: Present: alert, oriented X3, CN II-XII intact, normal gait, reflexes normal - Psychiatric Psychiatric exam: Present: normal affect, normal mood - Skin Skin exam: Present: warm, dry, intact, normal color, rash (Swollen, mildly edward thematous tender distal left index finger rash), erythema. Absent: cyanosis, diaphoretic, urticaria, vesicles ED Course Vital Signs 11/07/21 13:56 Temperature 98.5 F Pulse Rate 66 Respiratory 18 Rate Blood Pressure 140/86 [Left] O2 Sat by Pulse 99 Oximetry ED Medical Decision Making - EKG Data Interpretation: subendocardial ischemia - Medical Decision Making This is a nulliparous 26-year-old -[place] female with no past medical history who presents to the ED with complaint of acute onset persistent nontraumatic painful swollen mild erythematous rash on distal left index finger for the last 3 days. Patient admits to biting her nails habitually. Patient states that in the last 2 days she has not been able to perform any active range of motion of the left hand because of worsening distal left index finger pain and swelling. In the ED, patient is alert and oriented x3 and is not in any distress. Patient was treated for pain in the ED. Patient also received initial oral antibiotics in the ED. The left index finger swollen rash was incised and drained per protocol after application of lidocaine 1% solution around the distal finger for local anesthesia. The wound was then debrided extensively after incising the swollen rash with scalpel blade #11. Thick yellowish drainage discharge drained from the wound. Wound was then extensively debrided with normal saline and sterile gauze packed into the wound and dressed appropriately with 4 x 4 gauze and Kerlix. Patient tolerated the procedure well. Patient was then discharged home on pain medications and oral antibiotics and was advised to follow-up with her primary care physician in 7 to 10 days for reevaluation or return to the ED immediately if symptoms get worse. - Differential Diagnosis paronychia; finger cellulitis; finger abscess Critical care attestation.: If time is entered above; I have spent that time in minutes in the direct care of this critically ill patient, excluding procedure time. ED Disposition Clinical Impression: Paronychia of left index finger, Cellulitis of left index finger Disposition: 01 HOME / SELF CARE / HOMELESS Is pt being admited?: No Does the pt Need Aspirin: No Condition: Stable Instructions: Cellulitis, Adult, [id number], Paronychia, [id number] Additional Instructions: Take medication with food, drink plenty of fluids, follow-up with your primary care physician in 7 to 10 days for reevaluation. Return to the ED immediately if symptoms get worse. Prescriptions: Sulfamethoxazole/Trimethoprim [Bactrim DS TAB] 1 each PO Q12H 3 Days #20 tablet Ibuprofen [Motrin 800 MG tab] 800 mg PO Q8HR PRN #30 tablet PRN Reason: Pain , Severe (7-10) Referrals: HUMPHREY VARGAS MD [Primary Care Provider] - 7-10 days DINA REDDY MD [Staff Physician] - 7-10 days Forms: Work/School Release Form(ED) Time of Disposition: 23:47 Print Language: ROMANIAN
[2021-11-08 00:30] VITALS: BP 140/96
== END 2021-11-08 00:30 | disposition home or self-care (01) ==
LOC: ED 12:30
DX: L03.012 Cellulitis of left finger (principal); F17.200 Nicotine dependence, unspecified, uncomplicated; F10.20 Alcohol dependence, uncomplicated
CPT/HCPCS: 99282; 99283; J3490; Q0162